=== PATIENT | female | born 1940 | race Hispanic/Latino ===

== ENCOUNTER 2023-06-07 12:14 | Emergency (ER) | payer MEDICARE ==
[~2023-06-07] VITALS: Ht 157.5 cm; Wt 54.0 kg
[2023-06-07] MEDS: LACTULOSE 20 GM/30 ML UDCUP PO ONE (13:44)
[2023-06-07] MEDS: MAGNESIUM CITRATE 296 ML SOLUTION PO ONE (14:21)
[2023-06-07 14:47] LABS: BASOPHILS # (AUTO) 0.02 K/uL (0.00-0.20); BASOPHILS % (AUTO) 0.2 % (0.0-5.0); EOSINOPHILS % (AUTO) 1.2 % (0.0-8.0); HEMATOCRIT 35.6 % (36-48); IMMATURE GRANULOCYTE ABSOLUTE 0.03 K/uL (0-1); LYMPHOCYTES # (AUTO) 1.7 K/uL (1.0-4.8); MEAN CORPUSCULAR HEMOGLOBIN 29.4 pg (27.0-33.0); MEAN CORPUSCULAR HGB CONC 33.1 g/dL (32.0-36.0); MEAN CORPUSCULAR VOLUME 88.8 fL (79-99); MONOCYTES # (AUTO) 0.6 K/uL (0.1-1.0); MONOCYTES % (AUTO) 6.8 % (3.0-13.0); NEUTROPHILS # (AUTO) 6.2 K/uL (1.8-7.7); NEUTROPHILS % (AUTO) 71.5 % (40.0-77.0); PLATELET COUNT (AUTO) 238 K/uL (130-400); RED BLOOD CELL COUNT(AUTO) 4.01 MIL/uL (4.00-5.50); RED CELL DISTRIBUTION WIDTH 12.5 % (11.0-15.5); WHITE BLOOD COUNT (AUTO) 8.6 K/uL (4.8-10.8)
[2023-06-07] MEDS ORDERED: 0.9% NACL 500ML IV.SOLN 500 ML IV ONE (15:00)
[2023-06-07 15:01] LABS: POTASSIUM 4.8 mmol/L (3.5-5.1)
[2023-06-07 15:06] LABS: ALBUMIN 4.8 g/dL (3.5-5.0); BILIRUBIN,TOTAL 0.5 mg/dL (0.2-1.0); TOTAL PROTEIN, SERUM 8.5 g/dL (6.0-8.3)
[2023-06-07] MEDS ORDERED: LACT10SO95 PO (15:20)
[2023-06-07 15:28] VITALS: BP 158/72; PULSE 64; RESP 18; O2SAT 99
== END 2023-06-07 15:46 | disposition home or self-care (01) ==
LOC: EDH 12:14
DX: K59.00 Constipation, unspecified (principal); K21.9 Gastro-esophageal reflux disease without esophagitis
CPT/HCPCS: 36415; 74018; 80053; 85025